=== PATIENT | female | born 1975 | race Two or more races ===

== ENCOUNTER 2022-03-23 11:44 | Emergency (ER) | payer MEDICAID, OTHER ==
[~2022-03-23] VITALS: Ht 152.4 cm; Wt 54.5 kg
[2022-03-23 11:55] VITALS: BP 121/85
[2022-03-23] MEDS ORDERED: FLUORESCEIN SODIUM 1 MG STRIP ONE (13:23)
[2022-03-23] MEDS ORDERED: CEPHALEXIN MONOHYDRATE 500 MG CAPSULE PO ONE (13:30)
[2022-03-23] MEDS ORDERED: PROPARACAINE HCL 0.5% 15 ML OPHTHALMIC SOLUTION OU ONE (13:30)
[2022-03-23] MEDS ORDERED: IBUPROFEN 600 MG TABLET PO ONE (13:30)
[2022-03-23] MEDS ORDERED: FLUORESCEIN SODIUM 1 MG STRIP OU ONE (13:30)
[2022-03-23] MEDS ORDERED: PERTUSS(ACELL),DIPH,TET VAC/PF 0.5 ML SYRINGE IM. ONE (13:30)
[2022-03-23] MEDS ORDERED: BACITRACIN ZINC/POLYMYXIN B 14.2 GM OINTMENT TP ONE (14:00)
[2022-03-23] MEDS ORDERED: CEPH-558 PO (14:09)
[2022-03-23] MEDS ORDERED: TRAM-559 PO (14:09)
== END 2022-03-23 15:18 | disposition home or self-care (01) ==
LOC: EMS 11:44
DX: T20.14XA Burn of first degree of nose (septum), initial encounter (principal); T26.02XA Burn of left eyelid and periocular area, initial encounter; T26.01XA Burn of right eyelid and periocular area, initial encounter; X15.0XXA Contact with hot stove (kitchen), initial encounter; Y93.89 Activity, other specified; Y92.89 Other specified places as the place of occurrence of the external cause; Y99.0 Civilian activity done for income or pay
CPT/HCPCS: 16000; 90471; 90715; 99173; 99283; 99284

== ENCOUNTER 2023-02-02 21:20 | Emergency (ER) | payer SELFPAY ==
[~2023-02-02] VITALS: Ht 152.4 cm; Wt 54.5 kg
[~2023-02-02 21:20] MED LIST: CEPH-558 PO; TRAM-559 PO
[2023-02-02 21:30] VITALS: BP 136/77; PULSE 88; RESP 18; TEMP 98.7
== END 2023-02-02 22:46 | disposition home or self-care (01) ==
LOC: EMS 21:21
DX: T14.8XXA Other injury of unspecified body region, initial encounter (principal); Z53.21 Procedure and treatment not carried out due to patient leaving prior to being seen by health care provider; W54.0XXA Bitten by dog, initial encounter; Y93.89 Activity, other specified; Y92.89 Other specified places as the place of occurrence of the external cause; Y99.8 Other external cause status
CPT/HCPCS: 99281; Z7502

== ENCOUNTER 2023-02-03 17:31 | Emergency (ER) | payer SELFPAY ==
[~2023-02-03] VITALS: Ht 152.4 cm; Wt 56.8 kg
[2023-02-03 17:49] VITALS: BP 141/94; PULSE 87; RESP 18; TEMP 98.2
[2023-02-03] MEDS ORDERED: RABIES VACCINE, HUMAN DIPLOID/PF 2.5 UNITS/ML VIAL IM. ONE (18:00)
[2023-02-04] MEDS ORDERED: AMOX1TAB16 PO (19:39)
[2023-02-04] MEDS ORDERED: IBUP-1492 PO (19:39)
== END 2023-02-03 19:08 | disposition home or self-care (01) ==
LOC: EMS 17:32
DX: S31.050A Open bite of lower back and pelvis without penetration into retroperitoneum, initial encounter (principal); S30.810A Abrasion of lower back and pelvis, initial encounter; X58.XXXA Exposure to other specified factors, initial encounter; Y93.89 Activity, other specified; Y92.89 Other specified places as the place of occurrence of the external cause; Y99.8 Other external cause status
CPT/HCPCS: 90675; 99281

== ENCOUNTER 2023-02-04 18:02 | Emergency (ER) | payer SELFPAY ==
[2023-02-04] MEDS ORDERED: AMOX1TAB16 PO (19:39)
[2023-02-04] MEDS ORDERED: IBUP-1492 PO (19:39)
[2023-02-04] MEDS ORDERED: IBUPROFEN 600 MG TABLET PO ONE (19:45)
[2023-02-04] MEDS ORDERED: AMOX TR/POT CLAV 875 MG/125 MG TABLET PO ONE (19:45)
[2023-02-04 19:59] VITALS: BP 138/67; PULSE 79; RESP 20; TEMP 98.9
[2023-02-04] MEDS ORDERED: RABIES IMMUNE GLOBULIN/PF 300 UNITS/ML 5 ML VIAL IM. ONE (20:00)
[2023-02-04] MEDS ORDERED: RABIES VACCINE, HUMAN DIPLOID/PF 2.5 UNITS/ML VIAL IM. ONE (20:00)
== END 2023-02-04 21:05 | disposition home or self-care (01) ==
LOC: EMS 18:03
DX: S31.050A Open bite of lower back and pelvis without penetration into retroperitoneum, initial encounter (principal); Z23 Encounter for immunization; Z98.890 Other specified postprocedural states; W54.0XXA Bitten by dog, initial encounter; Y93.89 Activity, other specified; Y92.89 Other specified places as the place of occurrence of the external cause; Y99.8 Other external cause status
CPT/HCPCS: 90375; 90471; 90675; 96372; 99283; 99284